=== PATIENT | male | born 1995 | race Hispanic/Latino ===

== ENCOUNTER 2017-12-31 06:46 | Emergency (ER) | payer BC ==
[2017-12-31] MEDS ORDERED: NA CHLORIDE 0.9% 1,000 ML ONE ×2 (07:29→09:10)
[2017-12-31] MEDS ORDERED: ONDANSETRON 4 MG/2 ML VIAL ONE (07:29)
--- NOTE | 2017-12-31 08:13 | RAD REPORT ---
EXAM DESCRIPTION: CT - Stone Protocol - 12/31/2017 7:42 am CLINICAL HISTORY: Flank pain. Left flank pain COMPARISON: Abdomen Pelvis Wo Contrast dated 01/24/2016 TECHNIQUE: Axial images were obtained without oral or IV contrast. Lack of contrast limits solid org an and vascular assessment. The [id number] spans the entirety of the system partially obscuring uppermost abdomen and lung bases. Coronal reformatted images were obtained and reviewed. All CT scans are performed using dose optimization technique as appropriate and may include automated exposure control or mA/KV adjustment according to patient size. FINDINGS: The lower lung [place] are clear. Imaged portions of the liver and spleen show no suspicious findings on non-contrast imaging. The panc reas and adrenal glands are normal. No pathologic lymphadenopathy in the abdomen or pelvis. No urinary tract stones or obstructive uropathy. No bowel obstruction, free air, free fluid or abscess. Normal appendix noted. No significant bony abnormality. IMPRESSION: No urinary tract stones or obstructive uropathy.
[2017-12-31] MEDS ORDERED: MORPHINE 4 MG/ML SYR ONE (08:14)
[2017-12-31 08:28] LABS: Absolute Lymphocytes (CBC) 0.3 K/uL (0.7-4.9); Absolute Neutrophil 17.8 K/uL (1.8-8.0); Basophils % 0.2 % (0-1.3); Eosinophils % 0.2 % (0-4.4); Hematocrit 48.6 % (39.6-49.0); Lymphocytes % 1.6 % (15.3-44.8); MCH 29.8 pg (27.0-35.0); MCV 86.8 fL (80-100); Monocytes % 5.4 % (3.3-12.3)
[2017-12-31 08:48] LABS: Albumin 4.1 g/dL (3.4-5.0); Bilirubin Direct 0.4 mg/dL (0-0.2); Potassium 3.9 mmol/L (3.5-5.1); Protein, Total 7.7 g/dL (6.4-8.2)
[2017-12-31 09:16] LABS: Platelet Estimate ADEQ
[2017-12-31 09:17] LABS: Blood Morphology Comment NOT SEEN (NOT SEEN)
--- NOTE | 2017-12-31 09:43 | EDPHYS ---
Physician Documentation [facility] Name: Lane Graham Age: 22 yrs Sex: Male : 1995 Arrival Date: 12/31/2017 Time: 06:49 Bed 13 Private MD: ED Physician Milan Figueroa HPI: 12/31 07:39 This 22 yrs old Male presents to ER via Ambulatory with complaints of Vomiting.pm1 07:39 The patient presents to the emergency department with nausea, vomiting. Onset: The pm1 symptoms/episode began/occurred this morning, at 00:00. Possible causes: unknown. The symptoms are aggravated by nothing. The symptoms are alleviated by nothing. Associated signs and symptoms: Pertinent positives: Left flank pain and diffuse abdominal pain, Pertinent negatives: diarrhea, dysuria, fever. The patient has not experienced similar symptoms in the past. The patient has not recently seen a physician. Patient was at a wedding with his family last night. Consumed the same foods and drinks as everyone but is the only one sick. Complaining of pain to the left flank and generalized abdominal pain. Vomited once every hour since midnight. Intially food and now bilious. 7 total times vomiting. 1 normal BM . Historical: - Allergies: 07:00 Iodine; bb 07:00 SEAFOOD; bb - Home Meds: 07:00 ProAir HFA inhalation inhalation [Active]; bb - PMHx: 07:00 Asthma; bb - PSHx: 07:00 EGD; bb - Immunization history:: Adult Immunizations up to date. - Social history:: Smoking status: Patient/guardian denies using tobacco, Patient uses alcohol, occasionally. Patient/guardian denies using street drugs. - Ebola Screening: : No symptoms or risks identified at this time. ROS: 07:39 Constitutional: Negative for fever, chills, and weight loss, Eyes: Negative for injury, pm1 pain, redness, and discharge, ENT: Negative for injury, pain, and discharge, Neck: Negative for injury, pain, and swelling, Cardiovascular: Negative for chest pain, palpitations, and edema, Respiratory: Negative for shortness of breath, cough, wheezing, and pleuritic chest pain. 07:39 : Negative for injury, bleeding, discharge, and swelling, MS/Extremity: Negative for injury and deformity, Skin: Negative for injury, rash, and discoloration, Neuro: Negative for headache, weakness, numbness, tingling, and seizure. 07:39 Abdomen/GI: Positive for abdominal pain, nausea and vomiting, Negative for diarrhea, constipation. 07:39 Back: Positive for flank pain, on the left. Exam: 07:39 Constitutional: This is a well developed, well nourished patient who is awake, alert, pm1 and in no acute distress. Head/Face: Normocephalic, atraumatic. Eyes: Pupils equal round and reactive to light, extra-ocular motions intact. Lids and lashes normal. Conjunctiva and sclera are non-icteric and not injected. Cornea within normal limits. Periorbital areas with no swelling, redness, or edema. ENT: Nares patent. No nasal discharge, no septal abnormalities noted. Tympanic membranes are normal and external auditory canals are clear. Oropharynx with no redness, swelling, or masses, exudates, or evidence of obstruction, uvula midline. Mucous membranes moist. Neck: Trachea midline, no thyromegaly or masses palpated, and no cervical lymphadenopathy. Supple, full range of motion without nuchal rigidity, or vertebral point tenderness. No Meningismus. Chest/axilla: Normal chest wall appearance and motion. Nontender with no deformity. No lesions are appreciated. Cardiovascular: Regular rate and rhythm with a normal S1 and S2. No gallops, murmurs, or rubs. Normal PMI, no JVD. No pulse deficits. Respiratory: Lungs have equal breath sounds bilaterally, clear to auscultation and percussion. No rales, rhonchi or wheezes noted. No increased work of breathing, no retractions or nasal flaring. Abdomen/GI: Soft, non-tender, with normal bowel sounds. No distension or tympany. No guarding or rebound. No evidence of tenderness throughout. 07:39 Skin: Warm, dry with normal turgor. Normal color with no rashes, no lesions, and no evidence of cellulitis. MS/ Extremity: Pulses equal, no cyanosis. Neurovascular intact. Full, normal range of motion. 07:39 Back: pain, that is mild, of the left low back, ROM is normal, normal spinal alignment noted. 07:39 Neuro: Orientation: is normal, Mentation: is normal, Motor: moves all fours, Sensation: is normal, no obvious gross deficits. Vital Signs: 07:00 BP 130 / 87; Pulse 104; Resp 16 S; Temp 99.7(O); Pulse Ox 99% on R/A; Weight 61.23 kg bb (R); Height 5 ft. 6 in. (167.64 cm) (R); Pain 10/10; 07:42 BP 115 / 77; Pulse 102; Resp 18; Pulse Ox 100% on R/A; ph 08:57 BP 121 / 69; Pulse 97; Resp 18; Pulse Ox 98% on R/A; Pain 4/10; ph 10:09 BP 111 / 66; Pulse 87; Resp 18; Temp 99.8; Pulse Ox 99% on R/A; Pain 0/10; ph 07:00 Body Mass Index 21.79 (61.23 kg, 167.64 cm) bb MDM: 07:02 Patient medically screened. pm1 08:44 Data reviewed: vital signs. Data interpreted: Pulse oximetry: on room air is 100 %. pm1 Interpretation: normal. Counseling: I had a detailed discussion with the patient and/or guardian regarding: radiology results. 09:06 ED course: CT scan negative. WBC likely elevated from multiple episodes of vomiting. pm1 Patient feeling better and tolerating PO fluids. 09:07 Counseling: I had a detailed discussion with the patient and/or guardian regarding: the pm1 historical points, exam findings, and any diagnostic results supporting the discharge/admit diagnosis, lab results, the need for outpatient follow up, to return to the emergency department if symptoms worsen or persist or if there are any questions or concerns that arise at home, Will hydrate the patient with additional IV fluids prior to discharge. Patient without vomiting from PO challenge. 12/31 07:03 Order name: Creatinine for Radiology; Complete Time: 08:57 pm1 12/31 07:03 Order name: Basic Metabolic Panel; Complete Time: 08:57 pm1 12/31 07:03 Order name: CBC with Diff; Complete Time: 09:18 pm1 12/31 07:03 Order name: Hepatic Function; Complete Time: 08:57 pm1 12/31 07:03 Order name: Lipase; Complete Time: 08:57 pm1 12/31 07:43 Order name: ETOH Level; Complete Time: 08:57 pm1 12/31 07:03 Order name: IV Saline Lock; Complete Time: 07:41 pm1 12/31 07:03 Order name: Labs collected and sent; Complete Time: 07:42 pm1 12/31 07:13 Order name: CT Stone Protocol; Complete Time: 08:14 pm1 12/31 08:32 Order name: Manual Differential; Complete Time: 09:18 EDMS 12/31 07:56 Order name: Misc. Order: recollect labs; Complete Time: 08:18 ss 12/31 08:28 Order name: PO challenge; Complete Time: 08:47 pm1 Administered Medications: 07:35 Drug: NS 0.9% 1000 ml Route: IV; Rate: 1000 ml; Site: right antecubital; ph 08:45 Follow up: Response: No adverse reaction; IV Status: Completed infusion ph 07:35 Drug: Zofran 4 mg Route: IVP; Site: right antecubital; ph 08:00 Follow up: Response: No adverse reaction; Nausea is decreased ph 08:15 Drug: morphine 4 mg Route: IVP; Site: right antecubital; ph 08:45 Follow up: Response: No adverse reaction; Pain is decreased ph 09:04 Drug: NS 0.9% 1000 ml Route: IV; Rate: 1000 ml; Site: right antecubital; ph 10:12 Follow up: Response: No adverse reaction; IV Status: Completed infusion ph Disposition: 10:27 Co-signature as Attending Physician, Milan Figueroa MD. gs Disposition: 12/31/17 09:42 Discharged to Home. Impression: Vomiting. - Condition is Stable. - Discharge Instructions: Abdominal Pain, Adult, Food Poisoning, Nausea and Vomiting, Adult, Viral Gastroenteritis, Adult. - Prescriptions for Zofran ODT 4 mg Oral tablet,disintegrating - place 1 tablet by TRANSLINGUAL route every 8 hours As needed; 12 tablet. - Medication Reconciliation Form, Thank You Letter, Antibiotic Education, Prescription Opioid Use form. - Follow up: Emergency Department; When: As needed; Reason: Worsening of condition. Follow up: Private Physician; When: 2 - 3 days; Reason: Recheck today's complaints, Continuance of care, Re-evaluation by your physician. - Problem is new. - Symptoms have improved. Signatures: Dispatcher [facility] HealthcareMckenna Cuello RN RN Faye Gay RN RN ss Lupe Overton RN RN ph Liam Joyner, POST OFFICE MARKUP CLERK POST OFFICE MARKUP CLERK pm1 Milan Figueroa MD MD gs Corrections: (The following items were deleted from the chart) 10:13 09:42 12/31/2017 09:42 Discharged to Home. Impression: Vomiting. Condition is Stable. ph Discharge Instructions: Food Poisoning, Nausea and Vomiting, Adult, Viral Gastroenteritis, Adult. Prescriptions for Zofran ODT 4 mg Oral tablet,disintegrating - place 1 tablet by TRANSLINGUAL route every 8 hours As needed; 12 tablet. and Forms are Medication Reconciliation Form, Thank You Letter, Antibiotic Education, Prescription Opioid Use. Follow up: Emergency Department; When: As needed; Reason: Worsening of condition. Follow up: Private Physician; When: 2 - 3 days; Reason: Recheck today's complaints, Continuance of care, Re-evaluation by your physician. Problem is new. Symptoms have improved. pm1
--- NOTE | 2017-12-31 09:43 | ER ---
Nurse's Notes [facility] Name: Lane Graham Age: 22 yrs Sex: Male : 1995 Arrival Date: 12/31/2017 Time: 06:49 Bed 13 Private MD: Diagnosis: Vomiting Presentation: 12/31 06:58 Presenting complaint: Patient states: he has been vomiting hourly since midnight now bb his back and body aches 10/10 pt was at a dance and had a couple of drinks with his family and they all ate the same food and he is the only one who is sick. Transition of care: patient was not received from another setting of care. Onset of symptoms was December 31, 2017. Risk Assessment: Do you want to hurt yourself or someone else? Patient reports no desire to harm self or others. Initial Sepsis Screen: Does the patient meet any 2 criteria? No. Patient's initial sepsis screen is negative. Does the patient have a suspected source of infection? No. Patient's initial sepsis screen is negative. Care prior to arrival: None. 06:58 Method Of Arrival: Ambulatory 06:58 Acuity: RADHA 3 bb Historical: - Allergies: 07:00 Iodine; bb 07:00 SEAFOOD; bb - Home Meds: 07:00 ProAir HFA inhalation inhalation [Active]; bb - PMHx: 07:00 Asthma; bb - PSHx: 07:00 EGD; bb - Immunization history:: Adult Immunizations up to date. - Social history:: Smoking status: Patient/guardian denies using tobacco, Patient uses alcohol, occasionally. Patient/guardian denies using street drugs. - Ebola Screening: : No symptoms or risks identified at this time. Screenin:01 Abuse screen: Denies threats or abuse. Nutritional screening: No deficits noted. bb Tuberculosis screening: No symptoms or risk factors identified. Fall Risk None identified. Assessment: 07:30 General: Appears in no apparent distress. uncomfortable, slender, well groomed, ph Behavior is calm, cooperative, appropriate for age, Reports chills for 0-12 hours. Pain: Complains of pain in abdomen diffusely Pain does not radiate. Quality of pain is described as crampy, "sore" Pain began after vomiting began last night. Neuro: Level of Consciousness is awake, alert, obeys commands, Oriented to person, place, time, situation. Cardiovascular: Capillary refill < 3 seconds in bilateral fingers Patient's skin is warm and dry. Respiratory: Airway is patent Respiratory effort is even, unlabored, Respiratory pattern is regular, symmetrical. GI: Abdomen is flat, non-distended, Abd is soft and non tender X 4 quads. Reports nausea, vomiting, since last night, 1 episode of diarrhea. : No signs and/or symptoms were reported regarding the genitourinary system. Derm: Skin is intact, is healthy with good turgor, Skin is pink, warm \\T\\ dry. Musculoskeletal: Circulation, motion, and sensation intact. Range of motion:. 07:41 Reassessment: Pt taken to CT via stretcher. ph 08:48 Reassessment: Patient appears in no apparent distress at this time. Patient and/or ph family updated on plan of care and expected duration. Pain level reassessed. Patient is alert, oriented x 3, equal unlabored respirations, skin warm/dry/pink. Pt reports that nausea has improved and rates pain 4/10 (down from 10/10), VSS, mother at bedside, awaiting lab results. 10:09 Reassessment: Patient appears in no apparent distress at this time. Patient and/or ph family updated on plan of care and expected duration. Pain level reassessed. Patient is alert, oriented x 3, equal unlabored respirations, skin warm/dry/pink. Pt d/c home w/ mother Patient denies pain at this time. Patient states feeling better. Patient states symptoms have improved. Vital Signs: 07:00 BP 130 / 87; Pulse 104; Resp 16 S; Temp 99.7(O); Pulse Ox 99% on R/A; Weight 61.23 kg bb (R); Height 5 ft. 6 in. (167.64 cm) (R); Pain 10/10; 07:42 BP 115 / 77; Pulse 102; Resp 18; Pulse Ox 100% on R/A; ph 08:57 BP 121 / 69; Pulse 97; Resp 18; Pulse Ox 98% on R/A; Pain 4/10; ph 10:09 BP 111 / 66; Pulse 87; Resp 18; Temp 99.8; Pulse Ox 99% on R/A; Pain 0/10; ph 07:00 Body Mass Index 21.79 (61.23 kg, 167.64 cm) bb ED Course: 06:49 Patient arrived in ED. al2 06:50 Wayne Kulkarni, RN is Primary Nurse. jb4 06:51 Liam Joyner NP is [facility]. pm1 07:00 Triage completed. bb 07:00 Arm band placed on Patient placed in an exam room, on a stretcher, on pulse oximetry. bb Family accompanied patient. 07:01 Patient has correct armband on for positive identification. Bed in low position. Call bb light in reach. Side rails up X 1. Adult w/ patient. Pulse ox on. NIBP on. 07:11 Lupe Overton, JORJE is Primary Nurse. ph 07:26 Milan Figueroa MD is Attending Physician. pm1 07:30 Initial lab(s) drawn, by me, sent to lab. Inserted saline lock: 20 gauge in right ph antecubital area, using aseptic technique. Blood collected. 07:40 CT completed. Patient moved to CT via stretcher. Patient moved back from CT. cw1 07:42 CT Stone Protocol In Process Unspecified. EDMS 10:09 No provider procedures requiring assistance completed. intact, bleeding controlled, No ph redness/swelling at site. Pressure dressing applied. Administered Medications: 07:35 Drug: NS 0.9% 1000 ml Route: IV; Rate: 1000 ml; Site: right antecubital; ph 08:45 Follow up: Response: No adverse reaction; IV Status: Completed infusion ph 07:35 Drug: Zofran 4 mg Route: IVP; Site: right antecubital; ph 08:00 Follow up: Response: No adverse reaction; Nausea is decreased ph 08:15 Drug: morphine 4 mg Route: IVP; Site: right antecubital; ph 08:45 Follow up: Response: No adverse reaction; Pain is decreased ph 09:04 Drug: NS 0.9% 1000 ml Route: IV; Rate: 1000 ml; Site: right antecubital; ph 10:12 Follow up: Response: No adverse reaction; IV Status: Completed infusion ph Outcome: 09:42 Discharge ordered by . pm1 10:10 Discharged to home ambulatory, with family. ph 10:10 Condition: improved 10:10 Discharge instructions given to patient, Instructed on discharge instructions, follow up and referral plans. medication usage, Demonstrated understanding of instructions, follow-up care, medications, Prescriptions given X 1. 10:13 Patient left the ED. ph Signatures: Dispatcher [employer] EDMS Mckenna Freed RN RN bb Woodley, Crystal cw1 Lupe Overton RN RN ph Marinas, Patrick, CONTROL ROOM HELPER CONTROL ROOM HELPER pm1 Wayne Kulkarni RN RN jb4 Joi Stewart
== END 2017-12-31 10:13 | disposition home or self-care (01) ==
LOC: ER 06:46
DX: R11.10 Vomiting, unspecified (principal); J45.909 Unspecified asthma, uncomplicated; Z91.013 Allergy to seafood; Z91.048 Other nonmedicinal substance allergy status
CPT/HCPCS: 36415; 74176; 76377; 80048; 80076; 80320; 83690; 85025; 96361; 96374; 96375; 99284; J2405; J7030

== ENCOUNTER 2018-02-18 10:27 | Emergency (ER) | payer BC ==
[2018-02-18] MEDS ORDERED: LIDOCAINE 1% MPF 5 ML VIAL ONE (11:26)
[2018-02-18] MEDS ORDERED: HYDROCODONE/APAP 5/325 MG TAB ONE (11:55)
--- NOTE | 2018-02-18 12:36 | EDPHYS ---
Physician Documentation [facility] Name: Lane Graham Age: 22 yrs Sex: Male : 1995 Arrival Date: 02/18/2018 Time: 10:31 Bed 14 Private MD: Graeme [facility] ED Physician Kiran Crouch HPI: 02/18 12:35 This 22 yrs old Male presents to ER via Ambulatory with complaints of Abscess, pm1 Flu Symptoms. 12:35 The patient presents with an abscess of the right gluteus mayrlu. Description: pm1 fluctuant, raised. Onset: The symptoms/episode began/occurred 3 day(s) ago. Possible cause(s): unknown. Associated signs and symptoms: Pertinent negatives: discharge, drainage, fever. Modifying factors: the symptoms are aggravated by sitting, squeezing the lesion and expressing the contents, touching. Severity of symptoms: in the emergency department the symptoms are actually worse. The patient has not experienced similar symptoms in the past. The patient has not recently seen a physician. 12:35 Patient also complaining of sore throat and cough for the past two days. pm1 Historical: - Allergies: 10:56 Iodine; hj 10:56 SEAFOOD; hj - Home Meds: 10:56 ProAir HFA inhalation [Active]; hj - PMHx: 10:56 Asthma; hj - PSHx: 10:56 EGD; hj - Immunization history:: Adult Immunizations up to date. - Social history:: Smoking status: Patient/guardian denies using tobacco, Patient uses alcohol, occasionally. - Ebola Screening: : Patient negative for fever greater than or equal to 101.5 degrees Fahrenheit, and additional compatible Ebola Virus Disease symptoms Patient denies exposure to infectious person Patient denies travel to an Ebola-affected area in the 21 days before illness onset. ROS: 12:35 Eyes: Negative for injury, pain, redness, and discharge. pm1 12:35 Constitutional: Negative for fever, chills, and weight loss, Neck: Negative for injury, pain, and swelling, Cardiovascular: Negative for chest pain, palpitations, and edema, Respiratory: Negative for shortness of breath, cough, wheezing, and pleuritic chest pain, Abdomen/GI: Negative for abdominal pain, nausea, vomiting, diarrhea, and constipation, Back: Negative for injury and pain, : Negative for injury, bleeding, discharge, and swelling, MS/Extremity: Negative for injury and deformity. 12:35 Neuro: Negative for headache, weakness, numbness, tingling, and seizure. 12:35 ENT: Positive for sore throat, Negative for ear pain, dental pain, difficulty swallowing, difficulty handling secretions, hoarseness. 12:35 Skin: Positive for abscess, of the right gluteus marylu, Negative for cellulitis. Exam: 12:35 Constitutional: This is a well developed, well nourished patient who is awake, alert, pm1 and in no acute distress. Head/Face: Normocephalic, atraumatic. Eyes: Pupils equal round and reactive to light, extra-ocular motions intact. Lids and lashes normal. Conjunctiva and sclera are non-icteric and not injected. Cornea within normal limits. Periorbital areas with no swelling, redness, or edema. ENT: Nares patent. No nasal discharge, no septal abnormalities noted. Tympanic membranes are normal and external auditory canals are clear. Oropharynx with no redness, swelling, or masses, exudates, or evidence of obstruction, uvula midline. Mucous membranes moist. Neck: Trachea midline, no thyromegaly or masses palpated, and no cervical lymphadenopathy. Supple, full range of motion without nuchal rigidity, or vertebral point tenderness. No Meningismus. Chest/axilla: Normal chest wall appearance and motion. Nontender with no deformity. No lesions are appreciated. Cardiovascular: Regular rate and rhythm with a normal S1 and S2. No gallops, murmurs, or rubs. Normal PMI, no JVD. No pulse deficits. Respiratory: Lungs have equal breath sounds bilaterally, clear to auscultation and percussion. No rales, rhonchi or wheezes noted. No increased work of breathing, no retractions or nasal flaring. Abdomen/GI: Soft, non-tender, with normal bowel sounds. No distension or tympany. No guarding or rebound. No evidence of tenderness throughout. Back: No spinal tenderness. No costovertebral tenderness. Full range of motion. 12:35 MS/ Extremity: Pulses equal, no cyanosis. Neurovascular intact. Full, normal range of motion. 12:35 Skin: Appearance: normal except for affected area, abscess, that is small, of the right gluteus marylu, with fluctuance, with induration, no surrounding cellulitis, no rectal tenderness present on MAG. 12:35 Neuro: Orientation: is normal, Motor: is normal, Sensation: is normal, no obvious gross deficits. Vital Signs: 10:57 BP 130 / 71; Pulse 86; Resp 18; Temp 99.1(O); Pulse Ox 99% on R/A; Weight 61.23 kg; hj Height 5 ft. 5 in. (165.10 cm); Pain 8/10; 11:30 BP 122 / 68; Pulse 85; Resp 18; Pulse Ox 100% on R/A; hj 12:49 BP 125 / 70; Pulse 84; Resp 18; Pulse Ox 100% on R/A; hj 10:57 Body Mass Index 22.46 (61.23 kg, 165.10 cm) Procedures: 12:35 I \T\ D: Incision and drainage was performed for an abscess of the right gluteus marylu pm1 Prepped with Hibiclens. Anesthetized with 5 ml's 1% Lidocaine. Incised with #11 blade. Drained small amount serosanguinous fluid. Cultures obtained. Abscess cavity explored. Packed with iodoform gauze, Dressing: sterile 4x4 gauze, the patient tolerated the procedure well. MDM: 10:51 Patient medically screened. pm1 12:35 Data reviewed: vital signs. Data interpreted: Pulse oximetry: on room air is 99 %. pm1 Interpretation: normal. Counseling: I had a detailed discussion with the patient and/or guardian regarding: the historical points, exam findings, and any diagnostic results supporting the discharge/admit diagnosis, lab results, the need for outpatient follow up, for definitive care, a general surgeon, to return to the emergency department if symptoms worsen or persist or if there are any questions or concerns that arise at home. 02/18 11:11 Order name: Flu; Complete Time: 12:34 pm1 02/18 11:11 Order name: Strep; Complete Time: 12:34 pm1 02/18 11:45 Order name: Throat Culture [facility] 02/18 12:34 Order name: Wound Culture pm1 02/18 11:12 Order name: Incision \T\ Drainage Setup; Complete Time: 11:15 pm1 Administered Medications: 11:18 Drug: Lidocaine (1 %) 5 ml Volume: 5 ml; Route: Infiltration; 11:44 Drug: [place] 5 mg-325 mg 1 tabs Route: PO; 11:47 Follow up: Response: No adverse reaction 12:37 Drug: Tetanus-Diphtheria Toxoid Adult 0.5 ml {[place] Controller: [employer]. Exp: hj 03/03/2020. Lot #: [id number]. } Route: IM; Site: right deltoid; 12:45 Follow up: Response: No adverse reaction Disposition: 02/19 07:10 Co-signature as Attending Physician, Kiran Crouch MD I agree with the assessment and lizbeth plan of care. Disposition: 02/18/18 12:36 Discharged to Home. Impression: Acute pharyngitis, Cutaneous abscess of buttock. - Condition is Stable. - Discharge Instructions: Skin Abscess, Incision and Drainage, Pharyngitis, Incision and Drainage, Care After. - Prescriptions for Bactrim DS 800- 160 mg Oral Tablet - take 1 tablet by ORAL route every 12 hours for 10 days; 20 tablet. Tylenol- Codeine #3 300-30 mg Oral Tablet - take 2 tablets by ORAL route every 6 hours As needed; 20 tablet. - Medication Reconciliation Form, Thank You Letter, Antibiotic Education, Prescription Opioid Use form. - Follow up: Edwin Miller MD; When: 1 - 2 days; Reason: Recheck today's complaints, Continuance of care, Re-evaluation by your physician. - Problem is new. - Symptoms have improved. Signatures: Dispatcher [employer] Kiran Barron MD MD cha Joaquin, Henry, RN RN hj Marinas, Patrick, [employer] EXERCISE MANAGER pm1 Corrections: (The following items were deleted from the chart) 02/18 12:57 12:36 02/18/2018 12:36 Discharged to Home. Impression: Acute pharyngitis; Cutaneous hj abscess of buttock. Condition is Stable. Forms are Medication Reconciliation Form, Thank You Letter, Antibiotic Education, Prescription Opioid Use. Follow up: Edwin Miller; When: 1 - 2 days; Reason: Recheck today's complaints, Continuance of care, Re-evaluation by your physician. Problem is new. Symptoms have improved. pm1
--- NOTE | 2018-02-18 12:36 | ER ---
Nurse's Notes [facility] Name: Lane Graham Age: 22 yrs Sex: Male : 1995 Arrival Date: 02/18/2018 Time: 10:31 Bed 14 Private MD: Vitaly Bedolla Diagnosis: Acute pharyngitis;Cutaneous abscess of buttock Presentation: 02/18 10:54 Presenting complaint: Patient states: i have cough, fever, sore throat for 2 days now hj and i noticed an abscess on my R butt cheek today its hard and today i could hardly walk; denies N/V;. Transition of care: patient was not received from another setting of care. Onset of symptoms was February 18, 2018. Risk Assessment: Do you want to hurt yourself or someone else? Patient reports no desire to harm self or others. Initial Sepsis Screen: Does the patient meet any 2 criteria? Temp <36.0*C (96.8*F)) or > 38.3*C (100.9*F). Yes Does the patient have a suspected source of infection? Yes: Skin breakdown/wound. Care prior to arrival: None. 10:54 Method Of Arrival: Ambulatory 10:54 Acuity: RADHA 4 hj Triage Assessment: 10:57 General: Appears in no apparent distress. uncomfortable, Behavior is calm, cooperative, hj appropriate for age. Pain: Complains of pain in right gluteus marylu. Historical: - Allergies: 10:56 Iodine; hj 10:56 SEAFOOD; hj - Home Meds: 10:56 ProAir HFA inhalation [Active]; hj - PMHx: 10:56 Asthma; hj - PSHx: 10:56 EGD; hj - Immunization history:: Adult Immunizations up to date. - Social history:: Smoking status: Patient/guardian denies using tobacco, Patient uses alcohol, occasionally. - Ebola Screening: : Patient negative for fever greater than or equal to 101.5 degrees Fahrenheit, and additional compatible Ebola Virus Disease symptoms Patient denies exposure to infectious person Patient denies travel to an Ebola-affected area in the 21 days before illness onset. Screenin:57 Abuse screen: Denies threats or abuse. Denies injuries from another. Nutritional hj screening: No deficits noted. Tuberculosis screening: No symptoms or risk factors identified. Fall Risk None identified. Assessment: 11:56 Reassessment: see triage for asessment;. hj 12:15 Reassessment: I\T\D procedure started;. hj Vital Signs: 10:57 BP 130 / 71; Pulse 86; Resp 18; Temp 99.1(O); Pulse Ox 99% on R/A; Weight 61.23 kg; hj Height 5 ft. 5 in. (165.10 cm); Pain 8/10; 11:30 BP 122 / 68; Pulse 85; Resp 18; Pulse Ox 100% on R/A; hj 12:49 BP 125 / 70; Pulse 84; Resp 18; Pulse Ox 100% on R/A; hj 10:57 Body Mass Index 22.46 (61.23 kg, 165.10 cm) hj ED Course: 10:31 Patient arrived in ED. sb2 10:31 Vitaly Bedolla DO is Private Physician. sb2 10:47 Warren Abdalla RN is Primary Nurse. hj 10:49 Liam Joyner NP is PHCP. pm1 10:49 Kiran Crouch MD is Attending Physician. pm1 10:56 Triage completed. hj 10:57 Arm band placed on right wrist. hj 10:57 Patient has correct armband on for positive identification. Placed in gown. Bed in low hj position. Call light in reach. Side rails up X 1. 11:15 Strep Sent. hj 11:15 Flu Sent. hj 12:35 Edwin Miller MD is Referral Physician. pm1 12:51 Assist provider with I \T\ D: of an abscess on right RIGHT SIDE BUTTOCKS ABCESS Set up 5 I\T\D tray. Culture sent to lab. Wound packed. Dressing with Patient tolerated well. 12:57 Patient did not have IV access during this emergency room visit. hj Administered Medications: 11:18 Drug: Lidocaine (1 %) 5 ml Volume: 5 ml; Route: Infiltration; hj 11:44 Drug: [place] 5 mg-325 mg 1 tabs Route: PO; hj 11:47 Follow up: Response: No adverse reaction hj 12:37 Drug: Tetanus-Diphtheria Toxoid Adult 0.5 ml {Players Assistant: [employer]. Exp: 03/03/2020. Lot #: [id number]. } Route: IM; Site: right deltoid; 12:45 Follow up: Response: No adverse reaction Outcome: 12:36 Discharge ordered by . pm1 12:56 Discharged to home ambulatory. 12:56 Condition: stable 12:56 Discharge instructions given to patient, family, Instructed on discharge instructions, follow up and referral plans. Demonstrated understanding of instructions, follow-up care, medications, Prescriptions given X 2. 12:57 Patient left the ED. Signatures: Warren Abdalla RN RN Liam Aggarwal NP [employer] LAYOUT DESIGNER pm1 Mamie Orr 5 Gisselle Angel sb2
[2018-02-18] MEDS ORDERED: TETANUS & DIPHTHERIA TOX,ADULT 0.5 ML VIAL ONE (12:50)
== END 2018-02-18 12:57 | disposition home or self-care (01) ==
LOC: ER 10:27
PROC: 0J990ZZ Drainage of Buttock Subcutaneous Tissue and Fascia, Open Approach (ICD-10-PCS; principal; 2018-02-18)
DX: L02.31 Cutaneous abscess of buttock (principal); J02.9 Acute pharyngitis, unspecified; J45.909 Unspecified asthma, uncomplicated; Z79.899 Other long term (current) drug therapy
CPT/HCPCS: 87070; 87081; 87205; 87804; 90714; 99284